=== PATIENT | female | born 1995 | race Caucasian/White ===

== ENCOUNTER → 2017-05-01 | Outpatient (CLI) | payer BC ==
--- NOTE | 2017-05-01 19:31 | Diagnostic Imaging Report ---
INDICATION: Left foot pain after inversion injury. COMPARISON: None available. TECHNIQUE: Three non-weightbearing views of the left foot. FINDINGS: There is an acute avulsion fracture of the base of the fifth metatarsal. There is approximately 3 mm of fracture gap diastasis from traction of the peroneus brevis insertion on the avulsed fracture fragment. No additional acute fracture. Normal variant type I os naviculare. Joint spaces are well maintained throughout the foot. IMPRESSION: 1. Acute avulsion fracture off the base of the fifth metatarsal is mildly displaced. Dictated by: Dictated on workstation # [id number]
== END ==
LOC: RAD 18:59
PROVIDERS: ATTEND Emergency Medicine
DX: S92.352A Displaced fracture of fifth metatarsal bone, left foot, initial encounter for closed fracture (principal); X58.XXXA Exposure to other specified factors, initial encounter; Y99.8 Other external cause status
CPT/HCPCS: 73630